=== PATIENT | female | born 1990 | race Caucasian/White ===

== ENCOUNTER 2019-01-07 10:03 | Outpatient (CLI) ==
[2019-01-07 21:27] VITALS: BMI 45.1
== END 2019-01-07 10:04 | disposition home or self-care (01) ==
LOC: LAB 10:03
PROVIDERS: ATTEND Internal Medicine Rheumatology
DX: D86.9 Sarcoidosis, unspecified (principal)
CPT/HCPCS: 36415; 85025

== ENCOUNTER 2019-01-07 21:11 | Emergency (ER) ==
[2019-01-07 21:27] VITALS: BMI 45.1
[2019-01-07 22:13] LABS: URINE PREGNANCY TEST NEGATIVE (NEGATIVE)
--- NOTE | 2019-01-07 22:39 | CT ---
EXAM: CT head without contrast. HISTORY: Headache. PROCEDURE: Contiguous axial CT images of the head without contrast with coronal and sagittal reforma ts. FINDINGS: The ventricles and basal cisterns are normal in size and configuration. No evidence of ma ss or midline shift. No intracranial hemorrhage or evidence of large vessel infarct. No extra-axial fluid collection. The paranasal sinuses and mastoid air cells are well-aerated and normal in appear ance. Impression: Negative CT of the head.
[2019-01-07 22:51] VITALS: BP 121/84; TEMP 98.9
[2019-01-07] MEDS ORDERED: LIDOCAINE HCL 1% SDV SUBCUT STA (23:30)
[2019-01-07] MEDS ORDERED: SUBLIMAZE IVP STA (23:37)
[2019-01-07] MEDS: VERSED ONE ×2 (23:37→23:38)
[2019-01-07] MEDS: LIDOCAINE HCL 1% SDV ONE ×2 (23:37)
[2019-01-07] MEDS: SUBLIMAZE ONE ×2 (23:37→23:38)
[2019-01-07] MEDS ORDERED: VERSED IVP STA (23:38)
--- NOTE | 2019-01-07 23:43 | ED.PDOC ---
Procedures - Lumbar Puncture Position of Patient: Sitting Local Anesthetic Used: Yes (25mg lidocain subq.) Gauge of Spinal needle: 22 Lumbar Space Used for Insertion: L 4/5 Number of Attempts: 1 Spinal Fluid Obtained: Yes Fluid Description: Present: Clear Opening Pressure (mm/H2O): appears WNL no gauge or kit available Conscious Sedation - Pre-op Assessment Weight: 267 lb Surgical History: T&A - Medical History Past Medical History: GERD, Migraines, Arthritis Other History: SARCOIDOSIS - Physical Exam Heart Rate/Rhythm: Regular Rhythm
[2019-01-07] MEDS ORDERED: SODIUM CHLORIDE 1,000 ML IV STA (23:49)
--- NOTE | 2019-01-08 01:05 | CT ---
EXAM: CT chest without contrast. HISTORY: Cough and fever. PROCEDURE: Contiguous axial CT images of the chest without contrast with coronal and sagittal reform ats. FINDINGS: The heart is within normal limits in size. The thoracic aorta is within normal limits in d iameter. There is a 1.1 cm nodule in the right upper lobe. There are two nodules in the left lower lobe measuring 0.8 cm and 1.3 cm. No infiltrate or consolidation. The bones and soft tissues are unr emarkable. There are no acute findings in the visualized portion of the abdomen. Impression: Bilateral lung nodules measuring up to 1.3 cm as described. Recommend follow-up CT in 3 months to confirm stability.
--- NOTE | 2019-01-08 01:12 | ED.PDOC ---
General ED Provider: Dr. ADILENE CEDEÑO-ER Chief Complaint: Headache Stated Complaint: she has headache Time Seen by Physician: 01:12 Mode of Arrival: Walk-In Information Source: Patient Exam Limitations: No limitations Nursing and Triage Documentation Reviewed and Agree: Yes Does patient meet sepsis criteria?: No System Inflammatory Response Syndrome: Not Applicable Sepsis Protocol: For patient's 13 years and over: Temp is 96.8 and below OR 101 and greater Pulse >90 BPM Resp >20/minute Acutely Altered Mental Status Are patient's symptoms suggestive of a new infection, such as: -Pneumonia -Skin, Soft Tissue -Endocarditis -UTI -Bone, Joint Infection -Implantable Device -Acute Abdominal Infection -Wound Infection -Meningitis -Blood Stream Catheter Infection -Unknown Miscellaneous Complaint Exam - Febrile Illness/Adult Complaint/Exam Onset/Duration: 3 days Symptoms Are: Still present Timing: Constant Initial Severity: Mild Current Severity: Mild Alleviating: Reports: None Associated Signs and Symptoms: Reports: Headache, Chills, Stiff neck Related History: Reports: Similar episode Pseudomonas Risk Factors: Reports: None Serious Bacterial Infection Risk Factors: Reports: None Related Surgical History: None Review of Systems - Review Of Systems Constitutional: Reports: Chills, Fever Eyes: Reports: No symptoms Ears, Nose, Mouth, Throat: Reports: No symptoms Respiratory: Reports: No symptoms Cardiac: Reports: No symptoms GI: Reports: No symptoms : Reports: No symptoms Musculoskeletal: Reports: No symptoms Skin: Reports: No symptoms Neurological: Reports: No symptoms Endocrine: Reports: No symptoms Hematologic/Lymphatic: Reports: No symptoms All Other Systems: Reviewed and Negative Past Medical History - Past Medical History Previously Healthy: Yes Endocrine: Reports: Unknown Cardiovascular: Reports: Unknown Respiratory: Reports: Unknown Hematological: Reports: Unknown Gastrointestinal: Reports: Unknown Genitourinary: Reports: Unknown Neuro/Psych: Reports: Unknown Musculoskeletal: Reports: Unknown Cancer: Reports: Unknown Last Menstrual Period: 1 WEEK AGO - Surgical History General Surgical History: Reports: Unknown - Family History Family History: Reports: Unknown - Social History Smoking Status: Never smoker Hx Substance Use: No Alcohol Screening: None - Immunizations Tetanus Shot up to Date: (UNKNOWN) Physical Exam - Physical Exam Appearance: Well-appearing, No pain distress, Well-nourished Eyes: MICHAEL ENT: Ears normal, Nose normal, Oropharynx normal Neck: Supple Respiratory: Airway patent Cardiovascular: RRR GI/: Soft Musculoskeletal: Normal strength, ROM intact, No edema, No calf tenderness Skin: Warm, Dry, Normal color Neurological: Sensation intact, Motor intact, Reflexes intact, Cranial nerves intact, Alert, Oriented Psychiatric: Affect appropriate, Mood appropriate Interpretation - Radiology Interpretation Radiology Interpretation By: Radiologist Radiology Results: Negative Exam Interpreted: CT Scan Physician Notification - Case Discussed Physician Notified: dr white Time of Notification: 01:15 Critical Care Note - Critical Care Note Total Time (mins): 0 Course - Course Hematology/Chemistry: 01/07/19 22:13 01/07/19 22:13 Orders, Labs, Meds: Lab Review 01/07/19 01/07/19 01/07/19 21:30 21:30 21:30 WBC RBC Hgb Hct MCV MCH MCHC RDW Coeff of Cliff Plt Count Immature Gran % (Auto) Neut % (Auto) Lymph % (Auto) [place] % (Auto) Eos % (Auto) Baso % (Auto) Immature Gran # (Auto) Neut # (Auto) Lymph # (Auto) [place] # (Auto) Eos # (Auto) Baso # (Auto) ESR Sodium Potassium Chloride Carbon Dioxide Anion Gap BUN Creatinine Estimated GFR (MDRD) BUN/Creatinine Ratio Glucose Calcium Total Bilirubin AST ALT Alkaline Phosphatase Total Protein Albumin Globulin Albumin/Globulin Ratio Urine Color [place] Urine Clarity Slightly Urine pH 5.5 Ur Specific [place] 1.020 Urine Protein 2+ Urine Glucose (UA) Negative Urine Ketones Trace Urine Blood 2+ Urine Nitrite Positive Urine Bilirubin 1+ Urine Urobilinogen 2.0 Ur Leukocyte Esterase 1+ Urine Microscopic WBC 5-10 Ur Squamous Epith Cells 2-5 Urine Bacteria Trace Urine Test Negative CSF Appearance CSF Color CSF WBC Comment CSF RBC Comment CSF Neutrophils % CSF Lymphocytes % CSF Monocytes % CSF Eosinophils % CSF Basophils % CSF Glucose CSF Total Protein Influ A Molecular Assay Negative by naat Influ B Molecular Assay Negative by naat 01/07/19 01/07/19 01/07/19 22:13 22:13 23:26 WBC 13.25 H RBC 4.34 Hgb 13.3 Hct 38.0 MCV 87.6 MCH 30.6 MCHC 35.0 RDW Coeff of Cliff 12.7 Plt Count 244 Immature Gran % (Auto) 0.8 Neut % (Auto) 80.8 Lymph % (Auto) 8.7 L [place] % (Auto) 8.2 Eos % (Auto) 1.1 Baso % (Auto) 0.4 Immature Gran # (Auto) 0.1 Neut # (Auto) 10.7 H Lymph # (Auto) 1.2 [place] # (Auto) 1.1 Eos # (Auto) 0.2 Baso # (Auto) 0.1 ESR 33 H Sodium 138.0 Potassium 3.16 L Chloride 99.5 Carbon Dioxide 27.2 Anion Gap 14.46 BUN 13.0 Creatinine 0.79 Estimated GFR (MDRD) 88.00 BUN/Creatinine Ratio 16.45 Glucose 84.5 Calcium 9.43 Total Bilirubin 1.10 AST 44.6 H ALT 83.2 H Alkaline Phosphatase 75.7 Total Protein 7.47 Albumin 4.00 Globulin 3.47 Albumin/Globulin Ratio 1.15 Urine Color Urine Clarity Urine pH Ur Specific [place] Urine Protein Urine Glucose (UA) Urine Ketones Urine Blood Urine Nitrite Urine Bilirubin Urine Urobilinogen Ur Leukocyte Esterase Urine Microscopic WBC Ur Squamous Epith Cells Urine Bacteria Urine Test CSF Appearance Clear CSF Color Colorless CSF WBC Comment 0 CSF RBC Comment 2 H CSF Neutrophils % 0 CSF Lymphocytes % 0 L CSF Monocytes % 0 L CSF Eosinophils % 0 CSF Basophils % 0 CSF Glucose CSF Total Protein Influ A Molecular Assay Influ B Molecular Assay 01/07/19 01/07/19 23:26 23:26 WBC RBC Hgb Hct MCV MCH MCHC RDW Coeff of Cliff Plt Count Immature Gran % (Auto) Neut % (Auto) Lymph % (Auto) [place] % (Auto) Eos % (Auto) Baso % (Auto) Immature Gran # (Auto) Neut # (Auto) Lymph # (Auto) [place] # (Auto) Eos # (Auto) Baso # (Auto) ESR Sodium Potassium Chloride Carbon Dioxide Anion Gap BUN Creatinine Estimated GFR (MDRD) BUN/Creatinine Ratio Glucose Calcium Total Bilirubin AST ALT Alkaline Phosphatase Total Protein Albumin Globulin Albumin/Globulin Ratio Urine Color Urine Clarity Urine pH Ur Specific [place] Urine Protein Urine Glucose (UA) Urine Ketones Urine Blood Urine Nitrite Urine Bilirubin Urine Urobilinogen Ur Leukocyte Esterase Urine Microscopic WBC Ur Squamous Epith Cells Urine Bacteria Urine Test CSF Appearance CSF Color CSF WBC Comment CSF RBC Comment CSF Neutrophils % CSF Lymphocytes % CSF Monocytes % CSF Eosinophils % CSF Basophils % CSF Glucose 69 CSF Total Protein 20.0 Influ A Molecular Assay Influ B Molecular Assay Orders Category Date Time Status ED IV/MEDIPORT/POWERPORT .ONCE EMERGENCY 01/07/19 21:35 Active BLOOD CULTURE (ED ONLY) Stat LAB 01/07/19 22:13 Received CBC W/ AUTO DIFF Stat LAB 01/07/19 22:13 Completed CEREBROSPINAL FLUID CULTURE Stat LAB 01/07/19 23:26 Received COMPREHENSIVE METABOLIC PANEL Stat LAB 01/07/19 22:13 Completed CSF CELL COUNT WITH DIFF Stat LAB 01/07/19 23:26 Completed ESR Stat LAB 01/07/19 22:13 Completed FLU A/B MOLECULAR Stat LAB 01/07/19 21:30 Completed GLUCOSE,CSF Stat LAB 01/07/19 23:26 Completed MOLECULAR GROUP A STREP Stat LAB 01/07/19 21:30 Completed TOTAL PROTEIN,CSF Stat LAB 01/07/19 23:26 Completed URINALYSIS C & S IF INDICATED Stat LAB 01/07/19 21:30 Completed URINE CULTURE Stat LAB 01/07/19 22:03 Received URINE Stat LAB 01/07/19 21:30 Completed 0.9 % Sodium Chloride [Saline Flush] MEDS 01/07/19 21:35 Discontinued 1 syr IVF PRN PRN Fentanyl Vial [Sublimaze] MEDS 01/07/19 23:09 Discontinued 100 mcg .ROUTE .STK-MED ONE Lidocaine HCl/Pf [Lidocaine HCl 1% Sdv] MEDS 01/07/19 23:06 Discontinued 10 ml .ROUTE .STK-MED ONE Midazolam HCl Inj [Versed] MEDS 01/07/19 23:09 Discontinued 5 mg .ROUTE .STK-MED ONE Sodium Chloride 0.9% [Sodium Chloride] 1,000 ml MEDS 01/07/19 23:49 Discontinued IV 125 mls/hr CT CHEST W/O CONTRAST Stat RADS 01/08/19 00:[address] HEAD W/O CONTRAST Stat RADS 01/07/19 21:37 Completed Medications Discontinued Medications Generic Name Dose Route Start Last Admin Trade Name Freq PRN Reason Stop Dose Admin Sodium Chloride 1,000 mls @ 125 mls/hr 01/07/19 23:49 01/08/19 00:01 Sodium Chloride IV 01/08/19 07:48 125 mls/hr .Q8H STA Administration Sodium Chloride 1 syr 01/07/19 21:35 Saline Flush IVF PRN PRN To flush IV Vital Signs: Temp Pulse Resp BP Pulse Ox 01/07/19 22:50 98.9 F 115 H 18 121/84 97 01/07/19 21:12 101.1 F H 130 H 20 151/84 H 97 Departure - Departure Time of Disposition: 01:14 Disposition: HOME SELF-CARE Discharge Problem: Headache Instructions: Acute Headache (ED) Condition: Good Pt referred to PMD for follow-up: Yes IPMP verified?: No Additional Instructions: -------continue temp control as directed--f/u wtih dr white---stop mobic( meloxicam)---toradol 10mg qid prn pain #16 Allergies/Adverse Reactions: Allergies codeine Allergy (Verified 01/07/19 21:27) abdominal pain Penicillins Allergy (Verified 01/07/19 21:27) Unknown Sulfa (Sulfonamide Antibiotics) Allergy (Verified 01/07/19 21:27) causes sarcoidosis to come out Home Medications: Ambulatory Orders Azathioprine 50 mg PO BID 01/07/19 Fexofenadine HCl [Jacquelyn Allergy] 180 mg PO DAILY 01/07/19 Folic Acid 1 mg PO DAILY 01/07/19 Levonorgestrel-Ethin Estradiol [Levora-28 Tablet] 1 each PO DAILY 01/07/19 Meloxicam 15 mg PO DAILY 01/07/19 Montelukast Sodium 10 mg PO DAILY 01/07/19 Prednisone 10 mg PO DAILY 01/07/19 Zinc Gluconate [Zinc] 50 mg PO DAILY 01/07/19 Disposition Discussed With: Patient, Family
== END 2019-01-08 01:41 | disposition home or self-care (01) ==
LOC: ED 21:11
DX: R51 Headache (principal); R50.9 Fever, unspecified; M43.6 Torticollis; D86.9 Sarcoidosis, unspecified
CPT/HCPCS: 36415; 80053; 81001; 81025; 82945; 84157; 85025; 85651; 87040; 87070; 87086; 87502; 87651; 89051; 96361; 96374; 96375; 99284

== ENCOUNTER 2019-02-18 12:30 | Outpatient (CLI) | END 2019-02-18 12:31 | disposition home or self-care (01) | LOC: RHC-LAB 12:30 → FCC-LAB 12:31 | PROVIDERS: ATTEND Family Medicine | DX: N89.8 Other specified noninflammatory disorders of vagina (principal); Z20.2 Contact with and (suspected) exposure to infections with a predominantly sexual mode of transmission | CPT/HCPCS: 36415; 86592; 86695; 86696; 86803; 87389 ==